=== PATIENT | female | born 1995 | race Caucasian/White ===

== ENCOUNTER 2016-09-03 21:55 | Emergency (ER) | payer OTHER ==
[~2016-09-03] VITALS: Ht 160 cm; Wt 65.8 kg
[2016-09-03 22:02] VITALS: BP 112/69
--- NOTE | 2016-09-04 00:13 | NUR ---
PT TAKEN TO BED 7
--- NOTE | 2016-09-04 00:30 | NUR ---
PATIENT PRESENTS TO ED WITH C/O RIGHT FOOT PAIN X 2 DAYS. PT DENIES ANY TRAUMA TO THE FOOT THAT SHE IS AWARE OF. RIGHT FOOT APPEARS TO HAVE SMALL RAISED SWELLING TO TOP OF FOOT, NO PAIN WHEN PALPATION, ONLY WHEN WALKING. PT STATES "IT FEELS LIKE IT NEEDS TO BE POPPED." . PT DENIES N/V/D; SKIN IS PINK/WARM/DRY; AAOX4 WITH EVEN AND STEADY GAIT; LUNGS CLEAR BL; HR EVEN AND REGULAR; PT DENIES ANY FEVER, CP, SOB, OR COUGH AT THIS TIME; PATIENT STATES PAIN OF 7/10 AT THIS TIME; VSS; PATIENT POSITIONED FOR COMFORT; HOB ELEVATED; BEDRAILS UP X2; BED DOWN. ER MD MADE AWARE OF PT STATUS.
--- NOTE | 2016-09-04 01:11 | NUR ---
Dr. Oquendo evaluating patient at bedside.
[2016-09-04] MEDS ORDERED: KETOROLAC 60 MG/2 ML VIAL IM ONE (01:20)
[2016-09-04 02:01] VITALS: BP 114/72
== END 2016-09-04 02:00 | disposition home or self-care (01) ==
LOC: MED 21:55
DX: S90.31XA Contusion of right foot, initial encounter (principal); X58.XXXA Exposure to other specified factors, initial encounter; Y93.89 Activity, other specified; Y92.89 Other specified places as the place of occurrence of the external cause; Y99.9 Unspecified external cause status
CPT/HCPCS: 96372; 99283; J1885

== ENCOUNTER 2020-03-27 22:24 | Emergency (ER) | payer OTHER ==
[~2020-03-27] VITALS: Ht 160 cm; Wt 77.1 kg
[2020-03-27 22:50] VITALS: BP 113/79
--- NOTE | 2020-03-27 22:53 | NUR ---
TO LOBBY A/W BED AMBULATORY
--- NOTE | 2020-03-27 23:20 | NUR ---
SEEN AND EXAMINED BY CHANG WITH ORDERS AND CARRIED OUT
[2020-03-27] MEDS ORDERED: FAMOTIDINE 20 MG TAB PO SCH (23:30)
[2020-03-27] MEDS ORDERED: LIDOCAINE VISCOUS 2% 20 ML UDC PO ONE (23:30)
[2020-03-27] MEDS ORDERED: DICYCLOMINE HCL LIQUID 10 MG/5 ML UDC PO ONE (23:30)
[2020-03-27] MEDS ORDERED: ALUMINUM HYD/MAG/SIMETHICONE 30 ML UDC PO ONE (23:30)
--- NOTE | 2020-03-27 23:35 | NUR ---
MEDICATED PER ERMDS ORDER, TOLERATED WELL. BENTYL 10 MG PO, PEPCID 20 MG PO.
[2020-03-27] MEDS ORDERED: FAMOTIDINE 20 MG TAB ONE (23:50)
[2020-03-27] MEDS ORDERED: DICYCLOMINE 10 MG CAP ONE (23:51)
[2020-03-27 23:55] LABS: BASOPHILS # (AUTO) 0.1 K/uL (0.00-0.22); BASOPHILS % (AUTO) 0.5 % (0.0-2.0); EOSINOPHILS # (AUTO) 0.3 K/uL (0-0.4); EOSINOPHILS % (AUTO) 2.8 % (0.0-4.0); HEMATOCRIT 36.2 % (36-48); HEMOGLOBIN 12.1 g/dL (12.0-16.0); LYMPHOCYTES # (AUTO) 2.8 K/uL (2.5-16.5); LYMPHOCYTES % (AUTO) 23.4 % (20.5-51.1); MEAN CORPUSCULAR HEMOGLOBIN 28 pg (27-31); MEAN CORPUSCULAR HGB CONC 33 g/dL (33-37); MEAN CORPUSCULAR VOLUME 83.7 fL (80-94); MONOCYTES # (AUTO) 1.1 K/uL (0.8-1.0); NEUTROPHILS # (AUTO) 7.6 K/uL (1.8-7.7); NEUTROPHILS % (AUTO) 64.3 % (42.2-75.2); PLATELET COUNT (AUTO) 286 K/uL (140-450); RED BLOOD CELL COUNT(AUTO) 4.32 MIL/uL (4.20-5.40); RED CELL DISTRIBUTION WIDTH 13.4 % (11.6-13.7); WHITE BLOOD COUNT (AUTO) 11.8 K/uL (4.8-10.8)
[2020-03-28 00:25] LABS: APPEARANCE,URINE CLEAR (CLEAR); BILIRUBIN,URINE NEGATIVE (NEGATIVE); BLOOD, URINE TRACE-I (NEGATIVE); COLOR,URINE YELLOW (YELLOW); LEUKOCYTE ESTERASE ,URINE NEGATIVE (NEGATIVE); NITRITE, URINE NEGATIVE (NEGATIVE); UGLUCOSE NEGATIVE (NEGATIVE)
[2020-03-28 00:26] LABS: ALBUMIN 4.1 g/dL (3.4-5.0); ANION GAP 11.8 (8-16); CARBON DIOXIDE 29.8 mmol/L (21-32); CREATININE 0.8 mg/dL (0.6-1.3); POTASSIUM 3.6 mmol/L (3.5-5.1); TOTAL BILIRUBIN 0.2 mg/dL (0.0-1.0)
[2020-03-28 01:30] VITALS: BP 119/81
--- NOTE | 2020-03-28 01:30 | NUR ---
Patient discharged with v/s stable. Written and verbal after care instructions given and explained. Patient alert, oriented and verbalized understanding of instructions. Ambulatory with steady gait. All questions addressed prior to discharge. ID band removed. Patient advised to follow up with PMD. Rx of OMEPRAZOLE given. Patient educated on indication of medication including possible reaction and side effects. Opportunity to ask questions provided and answered.
== END 2020-03-28 01:30 | disposition home or self-care (01) ==
LOC: MED 22:24
DX: R10.13 Epigastric pain (principal); R11.0 Nausea
CPT/HCPCS: 36415; 80053; 81003; 83690; 84703; 85025; 99283